=== PATIENT | male | born 1950 | race African-American/Black ===

== ENCOUNTER 2022-02-13 11:23 | Inpatient (IN) | payer MEDICAID ==
[~2022-02-13] VITALS: Ht 185.4 cm; Wt 119.3 kg
[~2022-02-13 11:23] MED LIST: ATOR20TA65 PO; BRIM5DRO6 RIGHTEYE; CHOL400T11 PO; FISH PO; HYDR5TAB13 PO; LEVO150T8 PO; LOSA25TA26 PO; PANT40TA51 PO; TAMS-11 PO
[2022-02-13] MEDS ORDERED: ACETAMINOPHEN 325MG TABLET PO ONE (12:00)
[2022-02-13] MEDS ORDERED: SODIUM CHLORIDE 0.9% 1,000 ML IV ONE (12:00)
[2022-02-13 13:03] LABS: BASOPHILS % 0.9 % (0.0-2.0); EOSINOPHILS % 1.3 % (0.0-5.0); LYMPHOCYTES % 12.2 % (20.0-50.0); MEAN CORPUSCULAR HEMOGLOBIN 27.5 pg (28.0-32.0); MEAN CORPUSCULAR VOLUME 86.1 fL (80.0-94.0); MEAN PLATELET VOLUME 9.9 fl (7.4-10.4); MONOCYTES % 4.7 % (2.0-8.0); NEUTROPHILS % 80.9 % (40.0-76.0); PLATELET 177 x1000/uL (130-400); RED CELL DISTRIBUTION WIDTH 15.9 % (11.6-14.6)
[2022-02-13 13:10] LABS: CHLORIDE 108 mEq/L (98-107)
[2022-02-13 18:16] LABS: CLARITY URINE CLEAR (CLEAR); COLOR URINE DARK YELLOW (YELLOW); KETONES URINE TRACE (NEGATIVE); LEUKOCYTE ESTERASE URINE 1+ (NEGATIVE); NITRITE URINE POSITIVE (NEGATIVE); OCCULT BLOOD URINE 1+ (NEGATIVE); PH URINE 5.5 (4.5-8.0); PROTEIN URINE TRACE (NEGATIVE); SPECIFIC GRAVITY URINE 1.019 (1.005-1.030); UROBILINOGEN URINE >8.0 E.U./dL (0.2-1.0)
[2022-02-13 18:20] VITALS: BP 126/71
[2022-02-13 19:06] VITALS: BP 120/64
[2022-02-13] MEDS ORDERED: ONDANSETRON HCL 4MG/2ML INJ IV PRN ×2 (21:30→23:00)
[2022-02-13] MEDS ORDERED: CLONIDINE 0.1MG TABLET PO PRN (21:30)
[2022-02-13] MEDS ORDERED: ACETAMINOPHEN 325MG TABLET PO PRN (21:30)
[2022-02-13] MEDS ORDERED: DOCUSATE SODIUM 100MG CAPSULE PO PRN (21:30)
[2022-02-13] MEDS ORDERED: DIPHENHYDRAMINE 50MG/ML VIAL IV PRN (21:30)
[2022-02-13] MEDS ORDERED: HYDROCODONE/ACETAMINOPHEN 5/325MG TABLET PO PRN (21:30)
[2022-02-13] MEDS ORDERED: LORAZEPAM 2MG/ML CPJ IV PRN (21:30)
[2022-02-13] MEDS: SODIUM CHLORIDE 0.9% 1,000 ML IV SCH ×2 (22:17→23:00)
[2022-02-13] MEDS ORDERED: MAGNESIUM/ALUMINUM HYDROXIDE/SIMETHICONE 30ML UDC PO PRN (23:00)
[2022-02-13] MEDS ORDERED: CEFTRIAXONE 1 G PREMIX 50 ML IV SCH (23:00)
[2022-02-14] VITALS (10 sets, daily range): BP systolic 107–169; BP diastolic 58–89
[2022-02-14 01:06] LABS: *AMPHETAMINES SCREEN URINE NEGATIVE (NEGATIVE); *BARBITURATES SCREEN URINE NEGATIVE (NEGATIVE); *BENZODIAZEPINES SCREEN URINE NEGATIVE (NEGATIVE); *COCAINE SCREEN URINE NEGATIVE (NEGATIVE); CANNABINOID URINE SCREEN NEGATIVE (NEGATIVE); METHADONE URINE SCREEN NEGATIVE (NEGATIVE); OPIATES URINE SCREEN NEGATIVE (NEGATIVE); PHENCYCLIDINE URINE SCREEN NEGATIVE (NEGATIVE)
[2022-02-14 01:16] LABS: CREATINE KINASE 245 IU/L (39-308); CREATINE KINASE MB FRACTION < 1.0 ng/mL (0.5-3.6)
[2022-02-14] MEDS: SODIUM CHLORIDE 0.9% 1,000 ML IV SCH ×3 (06:27→23:44)
[2022-02-14] MEDS: OMEPRAZOLE 20MG CAPSULE EXTENDED RELEASE PO SCH (06:31)
[2022-02-14] MEDS: LEVOTHYROXINE SODIUM 150MCG TABLET PO SCH (06:32)
[2022-02-14 08:02] LABS: BASOPHILS % 0.9 % (0.0-2.0); EOSINOPHILS % 3.3 % (0.0-5.0); MEAN CORPUSCULAR HEMOGLOBIN 27.9 pg (28.0-32.0); MEAN CORPUSCULAR VOLUME 83.8 fL (80.0-94.0); MEAN PLATELET VOLUME 9.6 fl (7.4-10.4); MONOCYTES % 5.3 % (2.0-8.0); NEUTROPHILS % 63.5 % (40.0-76.0); PLATELET 166 x1000/uL (130-400); RED BLOOD CELL COUNT 2.48 mill/uL (4.7-6.1); RED CELL DISTRIBUTION WIDTH 16.4 % (11.6-14.6)
[2022-02-14 08:12] LABS: CHLORIDE 109 mEq/L (98-107); HEMATOCRIT. 20.8 % (42.0-52.0); HEMOGLOBIN. 6.9 g/dL (14.0-18.0)
[2022-02-14 08:22] LABS: CREATINE KINASE 257 IU/L (39-308); CREATINE KINASE MB FRACTION < 1.0 ng/mL (0.5-3.6)
[2022-02-14 08:27] LABS: HDL CHOLESTEROL 22 mg/dL (40-59); LDL CHOLESTEROL 66 mg/dL (5-100); PHOSPHORUS 3.4 mg/dL (2.5-4.9); T4 FREE 1.66 ng/dL (0.76-1.46)
[2022-02-14] MEDS ORDERED: ENOXAPARIN 40MG/0.4ML SYR SUBCUT SCH (09:00)
[2022-02-14] MEDS: CEFTRIAXONE 1,000 MG in DEXTROSE 5% WATER 50 ML IV SCH (09:06)
[2022-02-14] MEDS: FISH OIL/OMEGA-3 FATTY ACIDS 1000MG CAPSULE PO SCH (09:07)
[2022-02-14] MEDS: CHOLECALCIFEROL (VIT D3) 400 UNIT TABLET PO SCH (09:07)
[2022-02-14] MEDS: LOSARTAN POTASSIUM 25 MG TABLET PO SCH (09:07)
[2022-02-14] MEDS: FOLIC ACID 1MG TABLET PO SCH (09:07)
[2022-02-14 11:52] LABS: HEMATOCRIT 21.6 % (42.0-52.0)
[2022-02-14] MEDS ORDERED: POTASSIUM CHLORIDE 20MEQ TABLET SR PO NR (16:45)
[2022-02-14] MEDS: ATORVASTATIN CALCIUM 20MG TABLET PO SCH (20:30)
[2022-02-14] MEDS: TAMSULOSIN HCL 0.4MG SR CAPSULE PO SCH (20:30)
[2022-02-15] VITALS: BP 137/80
[2022-02-15 04:00] VITALS: BP 135/70
[2022-02-15] MEDS: LEVOTHYROXINE SODIUM 150MCG TABLET PO SCH (06:22)
[2022-02-15] MEDS: OMEPRAZOLE 20MG CAPSULE EXTENDED RELEASE PO SCH (06:22)
[2022-02-15 08:00] VITALS: BP 128/69
[2022-02-15] MEDS: LOSARTAN POTASSIUM 25 MG TABLET PO SCH (08:48)
[2022-02-15] MEDS: FISH OIL/OMEGA-3 FATTY ACIDS 1000MG CAPSULE PO SCH (08:48)
[2022-02-15] MEDS: CEFTRIAXONE 1,000 MG in DEXTROSE 5% WATER 50 ML IV SCH (08:48)
[2022-02-15] MEDS: FOLIC ACID 1MG TABLET PO SCH (08:48)
[2022-02-15] MEDS: CHOLECALCIFEROL (VIT D3) 400 UNIT TABLET PO SCH (09:00)
[2022-02-15 12:00] VITALS: BP 98/52
[2022-02-15 13:09] LABS: BASOPHILS % 0.9 % (0.0-2.0); EOSINOPHILS % 2.9 % (0.0-5.0); HEMATOCRIT. 25.1 % (42.0-52.0); HEMOGLOBIN. 8.3 g/dL (14.0-18.0); LYMPHOCYTES % 23.9 % (20.0-50.0); MEAN CORPUSCULAR HEMOGLOBIN 27.5 pg (28.0-32.0); MEAN CORPUSCULAR VOLUME 83.7 fL (80.0-94.0); MEAN PLATELET VOLUME 10.3 fl (7.4-10.4); NEUTROPHILS % 67.3 % (40.0-76.0); PLATELET 148 x1000/uL (130-400); RED BLOOD CELL COUNT 3.01 mill/uL (4.7-6.1); RED CELL DISTRIBUTION WIDTH 16.2 % (11.6-14.6)
[2022-02-15 13:17] LABS: INR 1.2; PROTHROMBIN TIME 12.9 sec (9.6-11.0)
[2022-02-15 13:21] LABS: CHLORIDE 109 mEq/L (98-107)
[2022-02-15 13:25] LABS: TOTAL IRON BINDING CAPACITY 198 ug/dL (250-450)
[2022-02-15 14:45] LABS: VITAMIN B12 SERUM 871 pg/mL (211-911)
[2022-02-15 14:51] LABS: FOLIC ACID (FOLATE) SERUM > 20.00 ng/mL (>5.38)
[2022-02-15] MEDS ORDERED: POTASSIUM CHLORIDE INJ 40 MEQ in DEXT 5% WATER 250 ML IV ONE (15:15)
[2022-02-15 15:22] LABS: FERRITIN 153 ng/mL (22-322)
[2022-02-15 15:34] LABS: HEPATITIS B SURFACE ANTIGEN NEGATIVE
[2022-02-15 15:49] VITALS: BP 115/54
[2022-02-15] MEDS: KCL 20MEQ/100ML X 2 FOR TOTAL KCL 40MEQ/200ML IV SCH ×2 (16:23→20:53)
[2022-02-15] MEDS ORDERED: NALOXONE HCL 0.4MG/ML VIAL IV PRN (18:30)
[2022-02-15 20:00] VITALS: BP 108/76
[2022-02-15] MEDS: ATORVASTATIN CALCIUM 20MG TABLET PO SCH (20:52)
[2022-02-15] MEDS: TAMSULOSIN HCL 0.4MG SR CAPSULE PO SCH (20:52)
[2022-02-15] MEDS: SODIUM CHLORIDE 0.9% 1,000 ML IV SCH (20:53)
[2022-02-16] VITALS: BP 125/68
[2022-02-16] MEDS ORDERED: FAMOTIDINE 20MG TABLET PO SCH (09:00)
[2022-02-16] MEDS ORDERED: AMIODARONE HCL 50MG/ML 3ML VIAL IV ONE (09:05)
[2022-02-16] MEDS ORDERED: ATROPINE SULFATE 1MG/10ML SYR ONE (09:05)
[2022-02-16] MEDS ORDERED: DEXTROSE 50% WATER 50ML SYRINGE IV ONE (09:05)
[2022-02-16] MEDS ORDERED: CALCIUM CHLORIDE 1GM/10ML SYR IV ONE (09:05)
[2022-02-16] MEDS ORDERED: SODIUM BICARBONATE 8.4% 1 MEQ/ML 50ML SYR IV ONE (09:05)
[2022-02-16] MEDS ORDERED: EPINEPHRINE 0.1MG/ML (1:10,000) 10ML SYR ONE (09:05)
== END 2022-02-16 04:00 | DRG 48 ==
LOC: ER 11:35 → EDBEDREQSVC 16:00 → 6WST 16:06 → EDBEDREQTM 16:21 → EDBEDREQ 16:21 → EDBEDREQSVC 16:21 → CANRESERV 16:43 → ENRESERV 16:43
PROVIDERS: ADMIT Internal Medicine Nephrology; ATTEND Internal Medicine Nephrology
PROC: 30233N1 Transfusion of Nonautologous Red Blood Cells into Peripheral Vein, Percutaneous Approach (ICD-10-PCS; 2022-02-14)
PROC: 4A10X4Z Monitoring of Central Nervous Electrical Activity, External Approach (ICD-10-PCS; principal; 2022-02-15)
PROC: 5A12012 Performance of Cardiac Output, Single, Manual (ICD-10-PCS; 2022-02-16)
PROC: 0BH17EZ Insertion of Endotracheal Airway into Trachea, Via Natural or Artificial Opening (ICD-10-PCS; 2022-02-16)
DX: G90.9 Disorder of the autonomic nervous system, unspecified (principal); J96.90 Respiratory failure, unspecified, unspecified whether with hypoxia or hypercapnia; G93.40 Encephalopathy, unspecified; N17.9 Acute kidney failure, unspecified; E44.0 Moderate protein-calorie malnutrition; K92.2 Gastrointestinal hemorrhage, unspecified; D62 Acute posthemorrhagic anemia; E03.9 Hypothyroidism, unspecified; E86.0 Dehydration; E78.5 Hyperlipidemia, unspecified; R26.89 Other abnormalities of gait and mobility; N40.0 Benign prostatic hyperplasia without lower urinary tract symptoms; I46.9 Cardiac arrest, cause unspecified; I49.01 Ventricular fibrillation; N39.0 Urinary tract infection, site not specified; E87.6 Hypokalemia; E11.9 Type 2 diabetes mellitus without complications; E66.9 Obesity, unspecified; F17.210 Nicotine dependence, cigarettes, uncomplicated; I10 Essential (primary) hypertension; E80.6 Other disorders of bilirubin metabolism; S09.90XA Unspecified injury of head, initial encounter; W18.39XA Other fall on same level, initial encounter; Y93.89 Activity, other specified; Y92.89 Other specified places as the place of occurrence of the external cause; Y99.8 Other external cause status; Z68.34 Body mass index [BMI] 34.0-34.9, adult; Z79.899 Other long term (current) drug therapy; D50.9 Iron deficiency anemia, unspecified; R62.7 Adult failure to thrive; E23.7 Disorder of pituitary gland, unspecified
CPT/HCPCS: 36415; 71045; 73521; 80048; 80053; 80061; 80305; 81003; 82550; 82553; 82607; 82728; 82746; 82962; 83540; 83550; 83735; 83880; 84100; 84439; 84443; 84484; 85014; 85018; 85025; 85044; 86705; 86709; 86803; 86850; 86900; 86920; 87340; 92950; 93005; 93306; 93880; 93970; 95816; 97162; 99285; J0282; J0461; J0696; J1650; J3480; J3490; J7030; J7060; P9016